=== PATIENT | male | born 1970 | race Caucasian/White ===

== ENCOUNTER 2017-02-21 15:17 | Inpatient (IN) | payer OTHER ==
[~2017-02-21] VITALS: Ht 177.8 cm; Wt 88.5 kg
[2017-02-21] MEDS ORDERED: MAGNESIUM HYDROXIDE 30 ML LIQUID UDC PO PRN (16:15)
[2017-02-21] MEDS ORDERED: LORAZEPAM 1 MG TABLET PO PRN ×2 (16:15)
[2017-02-21] MEDS ORDERED: LORAZEPAM 2 MG/1 ML VIAL IM PRN (16:15)
[2017-02-21] MEDS ORDERED: ONDANSETRON ODT 4 MG TAB.RAPDIS SL PRN (16:15)
[2017-02-21] MEDS ORDERED: DICYCLOMINE HCL 20 MG TABLET PO PRN (16:15)
[2017-02-21] MEDS ORDERED: LOPERAMIDE HCL 2 MG CAPSULE PO PRN ×2 (16:15)
[2017-02-21] MEDS ORDERED: IBUPROFEN 400 MG TABLET PO PRN (16:15)
[2017-02-21] MEDS ORDERED: MAG HYDROX/AL HYDROX/SIMETH 30 ML LIQUID UDC PO PRN (16:15)
[2017-02-21] MEDS ORDERED: ONDANSETRON 4 MG/2 ML VIAL IM PRN (16:15)
[2017-02-21] MEDS ORDERED: MIRALAX 17 GM POWD.PACK PO PRN (16:15)
[2017-02-21] MEDS ORDERED: THIAMINE HCL 200 MG/2 ML VIAL IM ONE (16:15)
[2017-02-21] MEDS: LORAZEPAM 1 MG TABLET PO SCH ×2 (17:08→21:07)
[2017-02-21 17:31] LABS: BASOPHILS # (AUTO) 0.1 K/uL (0.0-8.0); EOSINOPHILS # (AUTO) 0.1 K/uL (0.0-0.7); EOSINOPHILS % (AUTO) 1.1 % (0.0-7.0); HEMATOCRIT 46.7 % (40-50); HEMOGLOBIN 15.5 G/DL (14.0-18.0); LYMPHOCYTES # (AUTO) 2.7 K/UL (0.8-4.8); LYMPHOCYTES % (AUTO) 24.3 % (20.5-51.5); MEAN CORPUSCULAR HEMOGLOBIN 32.9 UUG (27.0-31.0); MEAN CORPUSCULAR HGB CONC 33 g/dL (32.0-37.0); MEAN CORPUSCULAR VOLUME 99.3 FL (82.0-92.0); MONOCYTES # (AUTO) 0.9 K/UL (0.1-1.30); NEUTROPHILS # (AUTO) 7.4 K/UL (1.8-8.9); NEUTROPHILS % (AUTO) 65.6 % (38.5-71.5); PLATELET COUNT (AUTO) 245 K/UL (150-450); WHITE BLOOD COUNT (AUTO) 11.2 K/UL (4.0-11.2)
[2017-02-21 18:05] LABS: ALANINE AMINOTRANSFERASE 46 U/L (16-63); ALKALINE PHOSPHATASE 64 U/L (50-136); AMYLASE 40 U/L (25-115); ASPARTATE AMINOTRANSFERASE 41 U/L (15-37); BILIRUBIN,TOTAL 0.6 mg/dL (0.2-1.0); CARBON DIOXIDE 29 mmol/L (21-32); CHLORIDE 105 mmol/L (98-107); CREATININE 1.1 mg/dL (0.6-1.3); GLUCOSE 89 mg/dL (74-106); LIPASE 83 U/L (73-393); MAGNESIUM 1.7 mg/dL (1.8-2.4); POTASSIUM 3.9 mmol/L (3.5-5.1); TOTAL PROTEIN, SERUM 7.4 g/dL (6.4-8.2); UREA NITROGEN, BLOOD 17 mg/dL (7-18)
[2017-02-21 18:06] LABS: ETHANOL < 3 MG/DL (0-0)
[2017-02-21 18:17] LABS: THYROID STIMULATING HORMONE 1.407 mIU/mL (0.358-3.740)
[2017-02-21 20:00] VITALS: BP 143/86
[2017-02-21] MEDS: GABAPENTIN 300 MG CAPSULE PO SCH (21:08)
[2017-02-21] MEDS: ACETAMINOPHEN 325 MG TABLET PO PRN (21:08)
[2017-02-21] MEDS ORDERED: MAGNESIUM OXIDE 400 MG TABLET PO ONE (21:15)
[2017-02-21 22:24] LABS: *AMPHETAMINE, URINE NEGATIVE (NEGATIVE); *BARBITURATE, URINE NEGATIVE (NEGATIVE); *CANNABINOID, URINE NEGATIVE (NEGATIVE); *COCCAINE, URINE NEGATIVE (NEGATIVE); *OPIATE, URINE POSITIVE (NEGATIVE); *PHENCYCLIDINE SCREEN,URINE NEGATIVE (NEGATIVE)
[2017-02-21] MEDS: HYDROXYZINE PAMOATE 25 MG CAPSULE PO PRN (23:58)
[2017-02-22] VITALS: BP 135/90
[2017-02-22] MEDS ORDERED: HYDROXYZINE PAMOATE 25 MG CAPSULE ONE (00:06)
[2017-02-22 04:00] VITALS: BP 128/86
[2017-02-22] MEDS ORDERED: MELA3TAB PO (06:33)
[2017-02-22] MEDS ORDERED: GABA-534 PO (06:34)
[2017-02-22] MEDS ORDERED: DULO60CA45 PO (06:34)
[2017-02-22] MEDS ORDERED: QUET50TA PO (06:35)
[2017-02-22] MEDS: GABAPENTIN 300 MG CAPSULE PO SCH ×3 (08:26→20:56)
[2017-02-22] MEDS: THIAMINE HCL 100 MG TABLET PO SCH (08:26)
[2017-02-22] MEDS: LORAZEPAM 1 MG TABLET PO SCH ×4 (08:26→20:56)
[2017-02-22] MEDS: ACETAMINOPHEN 325 MG TABLET PO PRN ×2 (08:26→14:34)
[2017-02-22] MEDS: FOLIC ACID 1 MG TABLET PO SCH (08:26)
[2017-02-22] MEDS: MULTIVITAMINS,THERAPEUTIC TABLET PO SCH (08:28)
[2017-02-22 08:47] VITALS: BP 125/81
[2017-02-22] MEDS ORDERED: DOCUSATE SODIUM 250 MG CAPSULE PO SCH (09:00)
[2017-02-22] MEDS ORDERED: TUBERCULIN,PURIF.PROT.DERIV. 5 TU/0.1 ML TEST ID ONE (09:00)
[2017-02-22] MEDS ORDERED: 5 DAY TAPER OF LORAZEPAM -SERENITY PROTOCOL PO PRN (09:00)
[2017-02-22 12:53] VITALS: BP 143/84
[2017-02-22 16:25] VITALS: BP 153/91
[2017-02-22] MEDS: QUETIAPINE FUMARATE 25 MG TABLET PO SCH (17:15)
[2017-02-22] MEDS: DULOXETINE 60 MG CAPSULE.DR PO SCH (17:16)
[2017-02-22 20:00] VITALS: BP 128/80
[2017-02-22] MEDS: QUETIAPINE FUMARATE 100 MG TABLET PO SCH (20:56)
[2017-02-22] MEDS: MELATONIN 3 MG TABLET PO SCH (20:56)
[2017-02-23] MEDS: HYDROXYZINE PAMOATE 25 MG CAPSULE PO PRN (03:41)
[2017-02-23 06:08] LABS: HEPATITIS B SURFACE AG Negative (Negative)
[2017-02-23 08:39] VITALS: BP 152/94
[2017-02-23] MEDS ORDERED: GABAPENTIN 300 MG CAPSULE PO SCH (09:00)
[2017-02-23] MEDS: DULOXETINE 60 MG CAPSULE.DR PO SCH (09:05)
[2017-02-23] MEDS: LORAZEPAM 1 MG TABLET PO SCH ×3 (09:05→20:54)
[2017-02-23] MEDS: THIAMINE HCL 100 MG TABLET PO SCH (09:06)
[2017-02-23] MEDS: ACETAMINOPHEN 325 MG TABLET PO PRN (09:06)
[2017-02-23] MEDS: GABAPENTIN 300 MG CAPSULE PO SCH ×3 (09:06→20:54)
[2017-02-23] MEDS: MULTIVITAMINS,THERAPEUTIC TABLET PO SCH (09:06)
[2017-02-23] MEDS: QUETIAPINE FUMARATE 25 MG TABLET PO SCH ×3 (09:06→16:14)
[2017-02-23] MEDS: FOLIC ACID 1 MG TABLET PO SCH (09:06)
[2017-02-23] MEDS: METHOCARBAMOL 750 MG TABLET PO PRN (12:09)
[2017-02-23 13:01] VITALS: BP 157/92
[2017-02-23] MEDS ORDERED: ACETAMINOPHEN ES 500 MG TABLET PO PRN (15:00)
[2017-02-23 16:10] VITALS: BP 144/95
[2017-02-23] MEDS ORDERED: IBUPROFEN 400 MG TABLET PO PRN (16:15)
[2017-02-23 20:00] VITALS: BP 143/86
[2017-02-23] MEDS: MELATONIN 3 MG TABLET PO SCH (20:54)
[2017-02-23] MEDS: QUETIAPINE FUMARATE 100 MG TABLET PO SCH (20:55)
[2017-02-24] MEDS: HYDROXYZINE PAMOATE 25 MG CAPSULE PO PRN ×3 (03:24→21:25)
[2017-02-24 08:09] VITALS: BP 127/79
[2017-02-24] MEDS: GABAPENTIN 300 MG CAPSULE PO SCH ×3 (08:15→21:24)
[2017-02-24] MEDS: LORAZEPAM 1 MG TABLET PO SCH ×4 (08:15→21:23)
[2017-02-24] MEDS: DULOXETINE 60 MG CAPSULE.DR PO SCH (08:15)
[2017-02-24] MEDS: MULTIVITAMINS,THERAPEUTIC TABLET PO SCH (08:15)
[2017-02-24] MEDS: THIAMINE HCL 100 MG TABLET PO SCH (08:15)
[2017-02-24] MEDS: FOLIC ACID 1 MG TABLET PO SCH (08:15)
[2017-02-24] MEDS: QUETIAPINE FUMARATE 25 MG TABLET PO SCH ×3 (08:15→16:16)
[2017-02-24] MEDS: METHOCARBAMOL 750 MG TABLET PO PRN (08:16)
[2017-02-24 12:00] VITALS: BP 134/93
[2017-02-24 16:00] VITALS: BP 142/79
[2017-02-24 20:00] VITALS: BP 149/106
[2017-02-24] MEDS: QUETIAPINE FUMARATE 100 MG TABLET PO SCH (21:24)
[2017-02-24] MEDS: MELATONIN 3 MG TABLET PO SCH (21:24)
[2017-02-24] MEDS: IBUPROFEN 600 MG TABLET PO PRN (21:25)
[2017-02-25] VITALS: BP 141/91
[2017-02-25] MEDS: TRAZODONE 100 MG TABLET PO PRN (02:53)
[2017-02-25] MEDS: HYDROXYZINE PAMOATE 25 MG CAPSULE PO PRN ×2 (02:53→20:51)
[2017-02-25 06:44] LABS: MAGNESIUM 2.1 mg/dL (1.8-2.4); PHOSPHOROUS 4.4 mg/dL (2.5-4.9); POTASSIUM 3.8 mmol/L (3.5-5.1)
[2017-02-25 08:00] VITALS: BP 128/79
[2017-02-25] MEDS: DULOXETINE 60 MG CAPSULE.DR PO SCH (09:22)
[2017-02-25] MEDS: MULTIVITAMINS,THERAPEUTIC TABLET PO SCH (09:23)
[2017-02-25] MEDS: THIAMINE HCL 100 MG TABLET PO SCH (09:23)
[2017-02-25] MEDS: FOLIC ACID 1 MG TABLET PO SCH (09:23)
[2017-02-25] MEDS: LORAZEPAM 1 MG TABLET PO SCH ×3 (09:23→20:46)
[2017-02-25] MEDS: GABAPENTIN 300 MG CAPSULE PO SCH ×3 (09:23→20:46)
[2017-02-25] MEDS: QUETIAPINE FUMARATE 25 MG TABLET PO SCH ×3 (09:40→18:05)
[2017-02-25 12:00] VITALS: BP 145/93
[2017-02-25 16:00] VITALS: BP 134/82
[2017-02-25 20:00] VITALS: BP 116/95
[2017-02-25] MEDS: QUETIAPINE FUMARATE 100 MG TABLET PO SCH (20:46)
[2017-02-25] MEDS: MELATONIN 3 MG TABLET PO SCH (20:46)
[2017-02-26] VITALS: BP 117/62
[2017-02-26] MEDS: HYDROXYZINE PAMOATE 25 MG CAPSULE PO PRN ×3 (02:56→23:27)
[2017-02-26 08:00] VITALS: BP 144/92
[2017-02-26] MEDS: GABAPENTIN 300 MG CAPSULE PO SCH ×3 (08:40→20:10)
[2017-02-26] MEDS: FOLIC ACID 1 MG TABLET PO SCH (08:41)
[2017-02-26] MEDS: LORAZEPAM 1 MG TABLET PO SCH ×2 (08:41→20:10)
[2017-02-26] MEDS: MULTIVITAMINS,THERAPEUTIC TABLET PO SCH (08:41)
[2017-02-26] MEDS: THIAMINE HCL 100 MG TABLET PO SCH (08:41)
[2017-02-26] MEDS: QUETIAPINE FUMARATE 25 MG TABLET PO SCH ×3 (08:41→16:38)
[2017-02-26] MEDS: DULOXETINE 60 MG CAPSULE.DR PO SCH (08:41)
[2017-02-26 12:00] VITALS: BP 151/92
[2017-02-26 16:00] VITALS: BP 142/85
[2017-02-26] MEDS: IBUPROFEN 600 MG TABLET PO PRN (16:38)
[2017-02-26 20:00] VITALS: BP 142/81
[2017-02-26] MEDS: TRAZODONE 100 MG TABLET PO PRN (20:10)
[2017-02-26] MEDS: QUETIAPINE FUMARATE 100 MG TABLET PO SCH (20:10)
[2017-02-26] MEDS: MELATONIN 3 MG TABLET PO SCH (20:11)
[2017-02-27] VITALS: BP 111/70
[2017-02-27 08:00] VITALS: BP 121/76
[2017-02-27] MEDS: FOLIC ACID 1 MG TABLET PO SCH (08:48)
[2017-02-27] MEDS: MULTIVITAMINS,THERAPEUTIC TABLET PO SCH (08:49)
[2017-02-27] MEDS: HYDROXYZINE PAMOATE 25 MG CAPSULE PO PRN ×2 (08:49→16:11)
[2017-02-27] MEDS: GABAPENTIN 300 MG CAPSULE PO SCH ×3 (08:49→20:43)
[2017-02-27] MEDS: THIAMINE HCL 100 MG TABLET PO SCH (08:50)
[2017-02-27] MEDS: QUETIAPINE FUMARATE 25 MG TABLET PO SCH ×3 (08:50→16:12)
[2017-02-27] MEDS: DULOXETINE 60 MG CAPSULE.DR PO SCH (08:50)
[2017-02-27 12:00] VITALS: BP 131/81
[2017-02-27] MEDS ORDERED: HYDR-3895 PO (12:36)
[2017-02-27] MEDS ORDERED: METH-406 PO (12:36)
[2017-02-27 17:41] VITALS: BP 131/83
[2017-02-27 17:52] LABS: *AMPHETAMINE, URINE NEGATIVE (NEGATIVE); *BARBITURATE, URINE NEGATIVE (NEGATIVE); *CANNABINOID, URINE NEGATIVE (NEGATIVE); *COCCAINE, URINE NEGATIVE (NEGATIVE); *OPIATE, URINE NEGATIVE (NEGATIVE); *PHENCYCLIDINE SCREEN,URINE NEGATIVE (NEGATIVE)
[2017-02-27 20:00] VITALS: BP 137/84
[2017-02-27] MEDS: QUETIAPINE FUMARATE 100 MG TABLET PO SCH (20:43)
[2017-02-27] MEDS: MELATONIN 3 MG TABLET PO SCH (20:43)
[2017-02-27] MEDS: TRAZODONE 100 MG TABLET PO PRN (20:43)
[2017-02-27] MEDS: IBUPROFEN 600 MG TABLET PO PRN (20:43)
[2017-02-28] VITALS: BP 118/69
[2017-02-28] MEDS: HYDROXYZINE PAMOATE 25 MG CAPSULE PO PRN ×2 (00:12→08:14)
[2017-02-28 08:00] VITALS: BP 128/81
[2017-02-28] MEDS: DULOXETINE 60 MG CAPSULE.DR PO SCH (08:14)
[2017-02-28] MEDS: GABAPENTIN 300 MG CAPSULE PO SCH (08:15)
[2017-02-28] MEDS: THIAMINE HCL 100 MG TABLET PO SCH (08:15)
[2017-02-28] MEDS: QUETIAPINE FUMARATE 25 MG TABLET PO SCH (08:15)
[2017-02-28] MEDS: MULTIVITAMINS,THERAPEUTIC TABLET PO SCH (08:15)
[2017-02-28] MEDS: FOLIC ACID 1 MG TABLET PO SCH (08:15)
== END 2017-02-28 09:37 | disposition other institution (70) | DRG 895 ==
LOC: SRC 15:17
PROVIDERS: ADMIT Internal Medicine; ATTEND Internal Medicine
PROC: HZ2ZZZZ Detoxification Services for Substance Abuse Treatment (ICD-10-PCS; principal; 2017-02-21)
PROC: HZ31ZZZ Individual Counseling for Substance Abuse Treatment, Behavioral (ICD-10-PCS; 2017-02-23)
DX: F10.239 Alcohol dependence with withdrawal, unspecified (principal); G92 Toxic encephalopathy; F13.230 Sedative, hypnotic or anxiolytic dependence with withdrawal, uncomplicated; Y90.9 Presence of alcohol in blood, level not specified; G47.00 Insomnia, unspecified; F39 Unspecified mood [affective] disorder; E83.42 Hypomagnesemia; Z79.899 Other long term (current) drug therapy
CPT/HCPCS: 36415; 80307; 80346; 80361; 83690; 83735; 84100; 84443; 85025; 86580; 86592; 86705; 86803; 87340; 87806; G0480